=== PATIENT | male | born 1940 | race Caucasian/White ===

== ENCOUNTER 2024-08-14 08:41 | Emergency (ER) | payer MEDICARE, SELFPAY ==
--- NOTE | 2024-08-14 10:01 | ED.NECK ---
HPI - Neck Pain/Injury General Chief Complaint: Neck Pain/Injury Stated Complaint: neck discomfort Time Seen by Provider: 08/14/24 09:49 Source: patient and family (Spouse) Mode of arrival: ambulatory Limitations: no limitations History of Present Illness HPI Narrative: [id number] Patient presents with complaint of neck discomfort particularly left. He describes a pain and neck stiffness. He has a history of torticollis diagnosed in 2016. He notes that he was given a medication for this and it improved and occasionally is on prednisone p.r.n. for pain; He does note that he has arthritis. No trauma or recently. He has a primary care physician back in [place] where he resides. For the previous episode of torticollis he did not require surgery or physical therapy. They are returning to [place] on Thursday because on Thursday he is due for a monthly infusion. No paresthesias. Patient provides a list of medications which are as follows: carvedilol 25 mg b.i.d., daily multivitamin, sulfasalazine, Entresto, folic acid, warfarin, methotrexate on Mondays only, Farxiga, LASIK, clopidogrel, rosuvastatin q.h.s., vitamin-D. He is also recently prescribed clindamycin for cellulitis. PCP Software Engineer Developer = Dr Loi Gillespie. automotive glass mechanic Dr. Vicki Mcginnis. propellant assembler Dr Akhil Morton. Orthopaedists = Dr Vinnie Linares / Dr Taco Badillo. Urologist = Dr Mays. Related Data Home Medications Medication Instructions Recorded Confirmed carvedilol 25 mg tablet 25 mg PO Q12H 08/14/24 cholecalciferol (vitamin D3) 50 50 mcg PO HS 08/14/24 mcg (2,000 unit) capsule clopidogrel 75 mg tablet 75 mg PO 6XW 08/14/24 dapagliflozin propanediol 10 mg 10 mg PO QAM 08/14/24 tablet (Farxiga) folic acid 1 mg tablet 1 mg PO DAILY 08/14/24 furosemide 20 mg tablet 20 mg PO DAILY 08/14/24 methotrexate sodium 2.5 mg tablet 10 mg PO WEEKLY 08/14/24 multivitamin with minerals-folic tablet PO 08/14/24 acid 400 mcg-lycopene 370 mcg tablet (One-A-Day Men's 50 Plus) rosuvastatin 20 mg tablet 20 mg PO HS 08/14/24 sacubitril 49 mg-valsartan 51 mg 1 tablet PO BID 08/14/24 tablet (Entresto) sulfasalazine 500 mg 0.5 g PO BID 08/14/24 tablet,delayed release warfarin 2.5 mg tablet 2.5 mg PO 2XW 08/14/24 warfarin 5 mg tablet 5 mg PO 5XW 08/14/24 Allergies Allergy/AdvReac Type Severity Reaction Status Date / Time apixaban [From Eliquis] Allergy Unknown Verified 08/14/24 10:08 [facility] Past Medical History Medical History (Updated 08/16/24 @ 11:09 by Chyna Rust MD) Arthritis Atrial fibrillation diagnosed 2009 History of torticollis 2016 Kidney stone 1977 Surgical History Surgical History H/O umbilical hernia repair 2008 Hx of colonoscopy 2007 Hx of tonsillectomy 1948 S/P appendectomy 1955 Status post bilateral hip replacements left 2009, right 2010 Social History Social History (Updated 08/14/24 @ 10:18 by Chyna Rust MD) Additional living arrangements comments: resides in [place] Exam Narrative: GENERAL: Well-appearing, well-nourished, and in no acute distress. HEAD: Normocephalic, atraumatic. EYES: Non injected, non icteric ENT: Nares clear, no rhinorrhea or epistaxis. NECK: Held primarily forward in generally neutral position. Unable to turn head to the left; can demonstrate approximately 45 degrees of rotation right. Slight flexion and extension. No ecchymosis, lymphadenopathy. No bony step offs or deformities and vertebral bodies are midline without tendernesss. CHEST: Speaking in full sentences. No respiratory distress. HEART: Regular rate and rhythm. . ABDOMEN: Soft, nondistended. EXTREMITIES: Normal range of motion. No lower extremity edema. SKIN: Warm, dry, no rash. NEURO: No focal deficits. Alert and oriented x3. PSYCH: Normal mood and affect. Course Vital Signs Vital signs: Vital Signs Temperature 97.2 F L 08/14/24 10:24 Pulse Rate 76 08/14/24 10:24 Respiratory Rate 14 08/14/24 10:24 Blood Pressure 114/76 08/14/24 10:24 Pulse Oximetry 100 12/01/24 10:24 Temperature 97.2 F L 08/14/24 10:24 Pulse Rate 62 08/14/24 12:00 Respiratory Rate 16 08/14/24 12:00 Blood Pressure 133/71 08/14/24 12:00 Pulse Oximetry 99 08/14/24 12:00 MDM - Neck Pain/Injury MDM Narrative Medical decision making narrative: Patient presents with neck pain and stiffness particularly on the left with an inability to turn his neck to the left. He has a history of cortical is previously and notes that it improved after receiving some a medication and he did not require any surgical intervention or physical therapy after that. He has a history of arthritis as well. No acute trauma/injury so will defer imaging. In the emergency department they are afebrile with vital signs within normal limits. Patient is reassessed after receiving steroids and pain medication. He notes that he is improving. We discussed narcotic use for breakthrough pain. Also prescribed OTC analgesic medication and muscle relaxer for QHS. Also given Rx for steroid. Patient has no prior fills in the [place] prescription monitoring database given [place] is [place]. 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 Advised follow-up with his primary care physician specialists/care team at home. Comfortable with the plan. Discharge Plan Discharge Clinical Impression: Torticollis Patient Disposition: Home, Self-Care Condition: Stable Instructions: Antibiotic Form, Spasmodic Torticollis (ED) Additional Instructions: As we discussed, you continue taking the course of steroids you were prescribed. You can use the narcotic opiate medication prescribed For breakthrough pain but remember that each of these contains 325 mg take that into account so as to not accidentally overdose (maximum 4000mg/day). At night you can use the muscle relaxer prescribed. follow-up with your primary care physician once you return to [place]. Return to the emergency department with any new or worsening symptoms. Prescriptions: New hydrocodone-acetaminophen 5-325 mg tablet See Rx Instructions .ROUTE .COMPLEX PRN (Reason: pain) Qty: 10 0RF Rx Instructions: 1 tablet orally as needed in the morning and afternoon (8 hours apart) as needed for pain methocarbamol 750 mg tablet 750 mg PO HS Qty: 7 0RF prednisone 20 mg tablet 40 mg PO DAILY 4 Days Qty: 8 0RF Rx Instructions: start 08/15 (first dose received 08/14); take before 9am if possible acetaminophen 500 mg capsule 1,000 mg PO Q6H PRN (Reason: pain) Qty: 20 0RF No Action carvedilol 25 mg Tablet 25 mg PO Q12H Rx Instructions: must administer with a meal/food sulfasalazine 500 mg Tablet,Delayed Release (Dr/Ec) 0.5 g PO BID warfarin 2.5 mg Tablet 2.5 mg PO 2XW Rx Instructions: THURSDAY AND THURSDAY folic acid 1 mg Tablet 1 mg PO DAILY Entresto 49-51 mg Tablet 1 tablet PO BID One-A-Day Men's 50 Plus 400-370 mcg Tablet PO warfarin 5 mg Tablet 5 mg PO 5XW Rx Instructions: THURSDAY,THURSDAY,THURSDAY,THURSDAY,THURSDAY methotrexate sodium 2.5 mg Tablet 10 mg PO WEEKLY Rx Instructions: THURSDAY furosemide 20 mg Tablet 20 mg PO DAILY Rx Instructions: THURSDAY AND THURSDAY dapagliflozin propanediol [Farxiga] 10 mg Tablet 10 mg PO QAM clopidogrel 75 mg Tablet 75 mg PO 6XW Rx Instructions: EVERYDAY EXCEPT THURSDAY rosuvastatin 20 mg Tablet 20 mg PO HS cholecalciferol (vitamin D3) 50 mcg (2,000 unit) Capsule 50 mcg PO HS Follow-up/Referrals: PHYSICIAN NOT ON STAFF,NONSTAFF [Primary Care Provider] - Time of Disposition: 11:55
[2024-08-14 10:24] VITALS: BP 114/76; PULSE 76; RESP 14; TEMP 36.2; O2SAT 100
[2024-08-14] MEDS: HYDROcodone/acetaminophen (*CRX) 5-325 MG TABLET 1 TAB PO (10:24)
[2024-08-14] MEDS: predniSONE 20 MG TABLET 40 MG PO (10:24)
[2024-08-14 12:00] VITALS: BP 133/71; PULSE 62; RESP 16; O2SAT 99
== END 2024-08-14 12:00 | disposition home or self-care (01) ==
PROVIDERS: Emergency Provider Student in an Organized Health Care Education/Training Program
DX: M43.6 Torticollis (principal); I48.91 Unspecified atrial fibrillation; Z96.643 Presence of artificial hip joint, bilateral
CPT/HCPCS: 99283; A9270; J7512